=== PATIENT | male | born 2005 | race Caucasian/White ===

== ENCOUNTER 2024-01-18 16:36 | Emergency (ER) | payer OTHER, SELFPAY ==
[2024-01-18 16:38] VITALS: BP 157/104
--- NOTE | 2024-01-18 17:32 | ED.GENMED ---
History of Present Illness
General
Chief Complaint: Crisis Evaluation
Time Seen by Provider: 01/18/24 16:51
History of Present Illness
History of Present Illness:
18-year-old male history of bipolar disorder, schizophrenia presenting for psychiatric evaluation. Patient states that he was in the garage and touched something that he was concerned was fentanyl causing him to get high. Patient states he smoked
today but no illicit drug use. Patient reports history of ADHD, takes Vyvanse. Patient denies taking any other medications. Patient states that he was admitted to [facility] in the past 1 year but does not know what for, states that he took himself
off medication shortly after. Patient denies any suicidal or homicidal ideation. Patient denies any physical complaints including no chest pain, shortness breath, abdominal pain, nausea, vomiting, or diaphoresis. Patient states that he lives with
his grandparents. Patient presents to the ER today with his mother
Phy Exam
Physical Exam
Physical Exam:
General: Alert, no acute distress
Head: NCAT
Eyes: clear conjunctiva
Neck: supple
Cardiac: Tachycardic, regular rhythm, no murmur
Lungs: clear to auscultation bilaterally. No wheezes, rales, or rhonchi. Speaking full unlabored sentences. No respiratory distress.
Abdomen: soft, nondistended nontender. No rebound or guarding.
MSK: no lower extremity edema bilaterally. No deformity
Skin: warm, dry
Neuro: Alert and oriented x3. no focal deficits
Course
Orders/Labs/Results
Orders:
Orders
01/18/24 16:41
Crisis Consult Urgent
Reason for Consult: crisis
01/18/24 17:25
Fentanyl, Urine Urgent
Urine Drug Abuse Screen Urgent
Date Specimen was Collected: 01/18/24
Time Specimen was Collected: 16:42
01/18/24 17:31
Electrocardiogram (*1) Urgent
Reason for Study: Tachycardia
01/18/24 17:32
EKG- Treatment ONCE
01/18/24 17:51
Acetaminophen Urgent
Alcohol Urgent
Complete Blood Count/With Diff Urgent
Comprehensive Metabolic Panel Urgent
Salicylate Urgent
TSH Reflex To Free T4 Urgent
Abnormal Lab Results
01/18/24 01/18/24
17:25 17:51
RBC 4.57 L 10^6/uL
(4.70-6.10)
MCH 31.9 H pg
(27.0-31.0)
Glucose 66 L mg/dl
(70-99)
Salicylates < 1.0 L mg/dl
(2.0-20.0)
Acetaminophen < 10 L ug/ml
(10-30)
Ur Amphetamines Screen Positive H
(Negative)
U Marijuana (THC) Screen Positive H
(Negative)
01/18/24 17:51
01/18/24 17:51
Vital Signs
Initial and Last Documented VS:
Initial Vital Signs
Temp Pulse Resp BP Pulse Ox
98.1 F 107 18 157/104 97
01/18/24 16:38 01/18/24 16:38 01/18/24 16:38 01/18/24 16:38 01/18/24 16:38
Last Documented Vital Signs
Temp Pulse Resp BP Pulse Ox
98.1 F 95 20 128/88 98
01/18/24 16:38 01/18/24 18:00 01/18/24 18:00 01/18/24 18:00 01/18/24 18:00
MDM/Problems Addressed
Differential Diagnosis Includes:
substance use, schizophrenia, electrolyte abnormality, hyperthyroidism
MDM/Problems Addressed:
Workup reviewed, unremarkable. Pt evaluated by crisis. Pt declines inpatient psychiatric admission. Pt agreeable for outpatient follow up. Pt denies any suicidal or homicidal ideation, is not a threat to himself or others at this time. residential mental health worker
scheduled outpatient follow up for patient tomorrow, information given to patient and mother at bedside. Stable for discharge with outpatient follow up.
*Critical Care Note
Total Time (30-74mins, 75-104mins- exclusive of procedures): Not Applicable
ED Attending Note
-
Portions of this chart may have been created with voice recognition software.� Occasional wrong word or��sound alike� substitutions may have occurred due to the inherent limitations of voice recognition software.
Discharge Plan
Departure
Patient Disposition: Home (Routine Discharge)
Date of Disposition: 01/18/24
Time of Disposition: 19:52
Patient with high blood pressure during this ER visit?: Yes
Discharge Problem:
Drug use
Instructions: BLOOD PRESSURE
Referrals:
UNKNOWN - PT DOES,NOT KNOW [Family Provider] -
Activity Restrictions/Additional Instructions:
Follow up outpatient as scheduled
Return to the emergency department for suicidal/homicidal ideations, hallucinations or new/worsening symptoms
Interventions
Interventions:
*Risk Screen - Suicide Last Done: 01/18/24 16:38
*General Assessment Last Done: 01/18/24 16:38
*Neglect/Abuse Screening Last Done: 01/18/24 16:38
ED- Fall Risk Assessment Last Done: 01/18/24 17:28
*ED COVID-19 Vaccine History Last Done: 01/18/24 16:38
ED-Psychological Assessment Last Done: 01/18/24 17:28
Discharge Date and Time
Print Language: ESTONIAN
[2024-01-18 17:47] LABS: Amphetamines Positive (Negative); Barbiturates Negative (Negative); Benzodiazepines Negative (Negative); Buprenorphine Negative (Negative); Cocaine Negative (Negative); Marijuana Positive (Negative); Methadone Negative (Negative); Methamphetamines Negative (Negative); Opiates Negative (Negative); Phencyclidine Negative (Negative); Tricyclic Antidepressants Negative (Negative)
[2024-01-18 18:00] VITALS: BP 128/88
[2024-01-18 18:05] LABS: % Basophils 0.7 % (0-2); % Eosinophils 0.7 % (0-6); % Immature Granulocytes 0.2 % (0-0.5); % Lymphocytes 32.5 % (20.5-51.1); % Monocytes 5.5 % (1.7-9.3); % Neutrophils 60.4 % (42.2-75.2); Absolute Basophils 0.1 10^3/uL (0-0.2); Absolute Eosinophils 0.1 10^3/uL (0-0.7); Absolute Lymphocytes 3.4 10^3/uL (1.2-3.4); Absolute Monocytes 0.6 10^3/uL (0.1-0.6); Absolute Neutrophils 6.3 10^3/uL (1.4-6.5); Hematocrit 41.9 % (39.0-52.0); Hemoglobin 14.6 g/dL (13.0-18.0); Mean Corp Hgb Conc. 34.8 g/dL (33.0-37.0); Mean Corpuscular Hgb 31.9 pg (27.0-31.0); Mean Corpuscular Volume 91.7 fL (80.0-94.0); Mean Platelet Volume 8.5 fL (7.4-10.4); Nucleated Red Blood Cells % 0 % (-); Platelet Count 279 10^3/uL (130-400); Red Blood Cell Count 4.57 10^6/uL (4.70-6.10); Red Cell Dist. Width 12.9 % (11.5-14.5); White Blood Cell Count 10.5 10^3/uL (4.8-10.8)
[2024-01-18 18:06] LABS: Fentanyl, Urine Negative (Negative)
[2024-01-18 18:09] VITALS: BMI 24.3
[2024-01-18 18:23] LABS: ALT (SGPT) 29 U/L (0-50); AST (SGOT) 59 U/L (17-59); Acetaminophen < 10 ug/ml (10-30); Alkaline Phosphatase 63 U/L (38-126); Blood Urea Nitrogen 17 mg/dl (9-20); Calcium 9.6 mg/dl (8.4-10.2); Carbon Dioxide 29 mmol/L (22-30); Chloride 104 mmol/L (98-107); Estimated Creatinine Clearance > 125 ml/min; Glucose 66 mg/dl (70-99); Potassium 3.7 mmol/L (3.5-5.1); Salicylate < 1.0 mg/dl (2.0-20.0); Sodium 142 mmol/L (135-145); Total Bilirubin 0.6 mg/dl (0.2-1.3); Total Protein 7.7 g/dl (6.3-8.2); eGFR > 60.00
[2024-01-18 18:35] LABS: Alcohol None Detected
[2024-01-18 18:49] LABS: TSH Reflex To Free T4 1.22 uIU/ml (0.47-4.68)
== END 2024-01-18 20:17 | disposition home or self-care (01) ==
LOC: EMR 16:36
PROVIDERS: EMERGENCY PHYSICIAN Emergency Medicine
DX: F19.90 Other psychoactive substance use, unspecified, uncomplicated (principal); F31.9 Bipolar disorder, unspecified; F20.9 Schizophrenia, unspecified; F90.9 Attention-deficit hyperactivity disorder, unspecified type
CPT/HCPCS: 99283; 80053; 80143; 80179; 80306; 80307; 82077; 84443; 85025; 93005

== ENCOUNTER 2024-02-01 12:06 | Emergency (ER) | payer OTHER, SELFPAY ==
[2024-02-01 12:35] VITALS: BP 133/95
--- NOTE | 2024-02-01 12:52 | ED.GENMED ---
History of Present Illness
General
Chief Complaint: Crisis Evaluation
Time Seen by Provider: 02/01/24 12:42
History of Present Illness
History of Present Illness:
Patient is a 18-year-old boy with history of bipolar disorder, schizophrenia, ADHD presenting to the emergency department for crisis evaluation. Patient's mother is at bedside provides most of the history. She states that he was at inpatient work,
and discharged this morning after he was admitted for psychosis. He had changes in his medications. He was discharged this morning came and he was acting bizarre. He was fixated on his knife as well as guns. He then went to his car to grab
weapons. Provide the patient denies current weapons and they were his stools. Mom feels as if her safety is at risk given that she lives at home with son. Patient denies any SI or HI. No hallucinations or delusions. Denies any alcohol or drug
use. Denies any medical complaints.
Phy Exam
Physical Exam
Physical Exam:
GENERAL: in no acute distress
HEENT: normocephalic, extraocular movements intact
NECK: normal inspection
RESPIRATORY: no respiratory distress
CARDIOVASCULAR: regular rate and rhythm
EXTREMITIES: non-tender, no edema/swelling
NEUROLOGIC: awake and alert, moves all extremities
Psych: Alert and oriented, normal mood though intermittently agitated, speech normal not pressured, coherent thought process, not tangential, not currently suicidal or homicidal, cooperative and communicating, no active auditory or visual
hallucinations
SKIN: warm
Course
Orders/Labs/Results
Orders:
Orders
02/01/24 12:51
Crisis Consult Urgent
Reason for Consult: behavior problems,
Vital Signs
Initial and Last Documented VS:
Initial Vital Signs
Temp Pulse Resp BP Pulse Ox
98.0 F 125 16 133/95 98
02/01/24 12:35 02/01/24 12:35 02/01/24 12:35 02/01/24 12:35 02/01/24 12:35
Last Documented Vital Signs
Temp Pulse Resp BP Pulse Ox
98.0 F 125 16 133/95 98
02/01/24 12:35 02/01/24 12:35 02/01/24 12:35 02/01/24 12:35 02/01/24 12:35
MDM/Problems Addressed
Differential Diagnosis Includes:
Patient is a 18-year-old man presenting to the emergency department for crisis evaluation. Vitals and exam is reassuring. Patient has no medical complaints. Mother is at bedside who is providing safety concerns for her so given that she lives
with him at home. Patient denies any SI or HI. He is cooperative. Will discuss with crisis. Patient would benefit from inpatient admission.
*Critical Care Note
Total Time (30-74mins, 75-104mins- exclusive of procedures): Not Applicable
Update Note
Update Note:
Telepsych discussed with patient. After their assessment patient is acutely psychosis with fixation on weapons. They are recommending inpatient treatment. This time patient is voluntary. Will have a 302 as a backup.
Discussed with crisis. He has been accepted to [facility]. ETA will be around 10 PM tonight
ED Attending Note
-
Portions of this chart may have been created with voice recognition software.� Occasional wrong word or��sound alike� substitutions may have occurred due to the inherent limitations of voice recognition software.
Discharge Plan
Departure
Patient Disposition: Psych Facility
Date of Disposition: 02/01/24
Time of Disposition: 16:03
Discharge Problem:
Psychosis
Referrals:
UNKNOWN,NO INTERVIEW [Family Provider] -
Interventions
Interventions:
*Risk Screen - Suicide Last Done: 02/01/24 12:55
*General Assessment Last Done: 02/01/24 12:55
*Neglect/Abuse Screening Last Done: 02/01/24 12:35
*ED COVID-19 Vaccine History Last Done: 02/01/24 12:55
ED-Psychological Assessment Last Done: 02/01/24 12:55
Discharge Date and Time
Print Language: FRISIAN
== END 2024-02-01 22:39 ==
LOC: EMR 12:06
PROVIDERS: EMERGENCY PHYSICIAN Student in an Organized Health Care Education/Training Program
DX: F29 Unspecified psychosis not due to a substance or known physiological condition (principal); F31.9 Bipolar disorder, unspecified; F20.9 Schizophrenia, unspecified; F90.9 Attention-deficit hyperactivity disorder, unspecified type
CPT/HCPCS: 99285